=== PATIENT | female | born 1965 | race Caucasian/White ===

== ENCOUNTER 2019-10-28 15:36 | Outpatient (CLI) | payer OTHER, SELFPAY ==
[2019-10-28 15:53] LABS: Basophils Absolute Auto 0.05 K/mm3 (0.00-0.10); Basophils Percent Auto 0.9 % (0.0-1.0); Eosinophils Absolute Auto 0.13 K/mm3 (0.02-0.50); Eosinophils Percent Auto 2.2 % (1.0-6.0); Hematocrit 38.8 % (35.0-49.0); Immature Granulocyte Absolute 0.02 K/mm3 (0.00-0.00); Immature Granulocyte Percent A 0.3 % (0.0-0.0); Lymphocytes Absolute Auto 1.78 K/mm3 (1.10-4.50); Lymphocytes Percent Auto 30.3 % (18.0-42.0); Mean Corpuscular HGB Conc 33.5 g/dL (32.0-36.0); Mean Corpuscular Volume 95.6 fL (78.0-102.0); Mean Platelet Volume 9.8 fl (9.2-11.8); Monocytes Percent Auto 6.8 % (2.0-11.0); Neutrophils Absolute Auto 3.5 K/mm3 (1.7-7.2); Neutrophils Percent Auto 59.5 % (50.0-70.0); Platelet Count Result 261 K/mm3 (150-420); Red Blood Count 4.06 M/mm3 (4.20-5.40); Red Cell Distribution Width 13.1 % (11.6-14.4); White Blood Count 5.9 K/mm3 (4.8-10.8)
[2019-10-28 16:03] LABS: Hemoglobin A1C 7.8 % (<5.7)
[2019-10-28 16:39] LABS: Alanine Aminotransferase 73 U/L (14-59); Albumin Level 4.3 g/dL (3.4-5.0); Alkaline Phosphatase 106 U/L (46-116); Anion Gap 18.4 mmol/L (7-16); Aspartate Amino Transferase 44 U/L (15-37); Bilirubin,Total 0.2 mg/dL (0.00-1.00); Blood Urea Nitrogen 17 mg/dL (7-18); Calcium 9.4 mg/dL (8.5-10.1); Carbon Dioxide 24 mmol/L (21-32); Chloride 104 mmol/L (98-108); Cholesterol 186 mg/dL (0-200); Estimated Glomerular Filt Rate > 60; Glucose 170 mg/dL (70-99); HDL Direct 46 mg/dL (40-60); LDL Cholesterol Calculated 98 mg/dL (<130); Osmolality Calculated 299 mOsm/kg (285-295); Potassium 4.4 mmol/L (3.5-5.1); Sodium 142 mmol/L (136-145); Total Protein 8.1 g/dL (6.4-8.2); Triglycerides 212 mg/dL (0-150)
== END 2019-10-28 15:37 | disposition home or self-care (01) ==
LOC: CHSLAB 15:43
PROVIDERS: PCP Family Medicine
DX: R73.9 Hyperglycemia, unspecified (principal); Z13.220 Encounter for screening for lipoid disorders; I10 Essential (primary) hypertension
CPT/HCPCS: 36415; 80053; 80061; 83036; 85025

== ENCOUNTER 2020-01-26 08:12 | Outpatient (CLI) | payer OTHER, SELFPAY ==
[2020-01-26 09:11] LABS: Cholesterol 183 mg/dL (0-200); HDL Direct 42 mg/dL (40-60); LDL Cholesterol Calculated 90 mg/dL (<130); Triglycerides 257 mg/dL (0-150)
[2020-01-27 17:33] LABS: Basophils Absolute Auto 0.06 K/mm3 (0.00-0.10); Basophils Percent Auto 1.2 % (0.0-1.0); Eosinophils Absolute Auto 0.22 K/mm3 (0.02-0.50); Eosinophils Percent Auto 4.4 % (1.0-6.0); Hematocrit 43.6 % (35.0-49.0); Hemoglobin 13.3 g/dL (12.0-15.0); Immature Granulocyte Absolute 0.02 K/mm3 (0.00-0.00); Immature Granulocyte Percent A 0.4 % (0.0-0.0); Lymphocytes Absolute Auto 1.33 K/mm3 (1.10-4.50); Lymphocytes Percent Auto 26.4 % (18.0-42.0); Mean Corpuscular HGB Conc 30.5 g/dL (32.0-36.0); Mean Corpuscular Hemoglobin 30.6 pg (27.0-31.0); Mean Corpuscular Volume 100.5 fL (78.0-102.0); Mean Platelet Volume 10.9 fl (9.2-11.8); Monocytes Absolute Auto 0.41 K/mm3 (0.10-0.90); Monocytes Percent Auto 8.1 % (2.0-11.0); Neutrophils Percent Auto 59.5 % (50.0-70.0); Platelet Count Result 260 K/mm3 (150-420); Red Blood Count 4.34 M/mm3 (4.20-5.40); Red Cell Distribution Width 14.1 % (11.6-14.4)
[2020-01-27 17:50] LABS: Hemoglobin A1C 6.8 % (<5.7)
[2020-01-27 17:51] LABS: Alanine Aminotransferase 37 U/L (14-59); Albumin Level 4.3 g/dL (3.4-5.0); Alkaline Phosphatase 91 U/L (46-116); Anion Gap 12.5 mmol/L (7-16); Aspartate Amino Transferase 28 U/L (15-37); Bilirubin,Total 0.3 mg/dL (0.00-1.00); Blood Urea Nitrogen 18 mg/dL (7-18); Carbon Dioxide 28 mmol/L (21-32); Chloride 100 mmol/L (98-108); Estimated Glomerular Filt Rate > 60; Glucose 142 mg/dL (70-99); Osmolality Calculated 283 mOsm/kg (285-295); Potassium 5.5 mmol/L (3.5-5.1); Sodium 135 mmol/L (136-145); Total Protein 8.1 g/dL (6.4-8.2)
== END 2020-01-26 08:13 | disposition home or self-care (01) ==
PROVIDERS: PCP Family Medicine
DX: Z13.220 Encounter for screening for lipoid disorders (principal); I10 Essential (primary) hypertension; E11.9 Type 2 diabetes mellitus without complications
CPT/HCPCS: 36415; 80053; 80061; 83036; 85025

== ENCOUNTER 2020-01-31 15:35 | Outpatient (CLI) | payer OTHER, SELFPAY ==
[2020-01-31 15:59] LABS: Creatinine Urine 169.25 mg/dL (40-278)
[2020-01-31 16:01] LABS: MALB Creatinine Ratio 39.4 mg/g (0-30); Microalbumin Urine Random 66.8 mg/L
== END 2020-01-31 15:36 | disposition home or self-care (01) ==
PROVIDERS: PCP Family Medicine
DX: E11.9 Type 2 diabetes mellitus without complications (principal)
CPT/HCPCS: 82043

== ENCOUNTER 2021-05-31 18:16 | Inpatient (IN) | payer OTHER, SELFPAY ==
[2021-05-31] VITALS (8 sets, daily range): BP systolic 119–153; BP diastolic 80–92; PULSE 78–109; RESP 18–20; TEMP 37.3–37.9; O2SAT 87–94; BMI 41.6
--- NOTE | ~2021-05-31 | XR_ITS ---
EXAMINATION: XR chest 1V portable DATE: 06/04/2021 08:45 INDICATION: COVID-19 pneumonia. TECHNIQUE: A single frontal view of the chest was obtained. COMPARISON: Chest single view 05/31/2021, chest CT 05/31/2021 FINDINGS: There are airspace and interstitial opacities in all lung zones bilaterally with a peripher al predominance. No pleural effusion or pneumothorax. The heart size is normal. IMPRESSION: 1. Stable diffuse lung disease, consistent with COVID-19 pneumonia. Reviewed, dictated and finalized at location A. NG DOUBLE
--- NOTE | ~2021-05-31 | CT_ITS ---
EXAMINATION: CTA chest PE protocol DATE: 05/31/2021 20:19 INDICATION: Shortness of breath. TECHNIQUE: Computed tomography angiography (CTA) of the chest was performed with 100 mL Omnipaque-350 intravenous contrast timed to evaluate the pulmonary arteries. Coronal maximum intensity projection 3D-reconstructions were created by the technologist. Automated exposure control and iterative reconst ruction technique were employed. The dose-length product was 1073.29 mGy-cm. COMPARISON: Chest single view 05/31/2021 FINDINGS: There is mild emphysema. There are peripheral groundglass opacities and septal thickening p eripherally in all lobes. No pleural effusion. The heart size is normal. No pericardial effusion. The re is no pulmonary embolus. There is diffuse hepatic steatosis. There is mild thoracic spondylosis. IMPRESSION: 1. No pulmonary embolus. Sensitivity is moderately decreased by motion artifact. 2. Diffuse lung disease, consistent with COVID-19 pneumonia. 3. Mild emphysema. Reviewed, dictated and finalized at location A. TING CONTRACTOR IMPRESSION: 1. No pulmonary embolus. Sensitivity is moderately decreased by motion artifact . 2. Diffuse lung disease, consistent with COVID-19 pneumonia. 3. Mild emphysema.
--- NOTE | ~2021-05-31 | XR_ITS ---
XR chest 1V portable 05/31/2021 18:44 Indication: Shortness of breath and cough. Procedure: AP portable chest Comparison: No prior studies for comparison. Findings: Heart size normal. Patchy bilateral airspace disease, compatible with pneumonia. No pleural effusion or pneumothorax. No acute osseous abnormality. Impression: 1: Patchy bilateral airspace disease, compatible with pneumonia. Reviewed, dictated and finalized at location A. RPRISE APPLICATION ANALYST Impression: 1: Patchy bilateral airspace disease, compatible with pneumonia.
--- NOTE | 2021-05-31 18:28 | ED.SOB ---
HPI - SOB/Dyspnea General Chief Complaint: Shortness of Breath/Dyspnea Stated Complaint: amb Time Seen by Provider: 05/31/21 18:28 Source: patient Mode of arrival: ambulatory Limitations: no limitations History of Present Illness HPI Narrative: 55-year-old female, ex-smoker, DM, obesity, DOUG on CPAP, hypertension, dyslipidemia, arthritis, migraine, COVID unvaccinated, has been having these symptoms since 05/20/2021. -- cough productive of mucoid sputum -- Worsening shortness of breath -- pleuritic chest pain She tested positive for COVID on 05/27/2021 at [facility]. Subsequently she has been having worsening shortness of breath and was noted to be 88% on a pulse ox machine today afternoon. DD of DOUG shortness of breath she called the EMS and presented to our ER. MD elicited complaint: shortness of breath, cough and pain with inspiration Onset (ago): day(s) ( Twelve days) Context: recent illness, occurred during exertion and anxiety Timing: constant and progressively worsening Severity: moderate Exacerbating factors: exertion Relieving factors: nothing Associated symptoms: fever, cough, sputum production, nausea/vomiting, chest congestion and lightheadedness Treatment prior to arrival: none Related Data Home oxygen amount: none Home Medications Medication Instructions Recorded Confirmed amlodipine 10 mg PO DAILY 05/31/21 05/31/21 glipizide 5 mg PO DAILY 05/31/21 05/31/21 metoprolol succinate [Toprol XL] 50 mg PO DAILY 05/31/21 05/31/21 sertraline 100 mg PO DAILY 05/31/21 05/31/21 Allergies Allergy/AdvReac Type Severity Reaction Status Date / Time lisinopril Allergy Mild Cough Verified 05/31/21 18:43 Review of Systems Review of Systems: All systems reviewed & are unremarkable except as noted in HPI and below Constitutional: Constitutional: Reports as per HPI, Reports body ache(s) and Reports chills Eyes: Eyes: Reports as per HPI and Reports no additional eye complaints ENT: Reports system reviewed and no additional complaints, except as documented Cardiovascular: Cardiovascular: Reports as per HPI, Reports chest pain and Reports orthopnea Respiratory: Respiratory: Reports as per HPI, Reports pain on inspiration, Reports pain with cough, Reports dyspnea and Reports dyspnea on exertion Gastrointestinal: Gastrointestinal: Reports as per HPI, Reports no additional gastrointestinal complaints and Reports nausea Genitourinary: Genitourinary: Reports no additional female genitourinary complaints Musculoskeletal: Musculoskeletal: Reports myalgias Integumentary/Breasts: Skin/Breast: Reports system reviewed and no additional complaints, except as docu Neurologic: Reports system reviewed and no additional complaints, except as documented Psychiatric: Psychiatric: Reports no additional psychiatric complaints Endocrine: Endocrine: Reports no additional endocrine complaints Hematologic/Lymphatic: Hematologic/Lymphatic: Reports no additional hematologic/lymphatic complaints Allergic/Immunologic: Allergic/Immunologic: Reports no additional allergic/immunologic complaints [facility] Family History Family History Mother Family history of lung cancer Social History Social History Smoking status: Former smoker Exam Narrative: 55-year-old female is coughing persistently and is hypoxic with an oxygen saturation of 88%. Const: General: cooperative and anxious Nutritional Appearance: obese Orientation/consciousness: oriented to person, oriented to place, oriented to time and patient oriented x3 Limitations: physical limitations HENMT: Head: normal to inspection and No palpable skull fracture present Ears: hearing grossly normal bilaterally, external ears normal and mastoids normal General nose exam: Normal external nose present and Normal nares present Face and sinus: normal facial exam, s
--- NOTE | 2021-05-31 18:29 | ECG_ITS ---
Measurements Intervals [place] Rate: 102 P: 33 AK: 156 QRS: 31 QRSD: 89 T: 66 QT: 333 QTc: 434 Interpretive Statements SINUS TACHYCARDIA VENTRICULAR PREMATURE COMPLEX NONSPECIFIC T-WAVE ABNORMALITY- HIGH LATERAL LEADS BASELINE ARTIFACT- II, III, AVF BORDERLINE ECG Electronically Signed On 05-31-2021 20:13:54 VEGETABLE TRIMMER by Paulo Yeboah D.O.
[2021-05-31 19:03] LABS: Base Excess ABG 2.5 mmol/L (0-2); HCO3 ABG 25.7 mmol/L (23-29); Oxygen Content ABG 15.8 %vol (16.0-22.0); Oxygen Saturation ABG 88.8 % (95-97); Oxyhemoglobin 88.4 % (94-100); PCO2 ABG 35.2 mmHg (35-45); PO2 ABG 54.4 mmHg (80-90); Total Hemoglobin 12.7 g/dL (12.0-18.0); pH ABG 7.48 (7.35-7.45)
[2021-05-31 19:04] LABS: Basophils Absolute Auto 0.01 K/mm3 (0.00-0.10); Basophils Percent Auto 0.2 % (0.0-1.0); Eosinophils Absolute Auto 0.01 K/mm3 (0.02-0.50); Eosinophils Percent Auto 0.2 % (1.0-6.0); Hematocrit 36.7 % (35.0-49.0); Hemoglobin 12.1 g/dL (12.0-15.0); Immature Granulocyte Absolute 0.02 K/mm3 (0.00-0.00); Immature Granulocyte Percent A 0.5 % (0.0-0.0); Lymphocytes Percent Auto 11.8 % (18.0-42.0); Mean Corpuscular Hemoglobin 30.9 pg (27.0-31.0); Mean Corpuscular Volume 93.6 fL (78.0-102.0); Monocytes Absolute Auto 0.16 K/mm3 (0.10-0.90); Monocytes Percent Auto 3.8 % (2.0-11.0); Neutrophils Absolute Auto 3.5 K/mm3 (1.7-7.2); Neutrophils Percent Auto 83.5 % (50.0-70.0); Platelet Count Result 306 K/mm3 (150-420); Red Blood Count 3.92 M/mm3 (4.20-5.40); Red Cell Distribution Width 13.2 % (11.6-14.4); White Blood Count 4.2 K/mm3 (4.8-10.8)
[2021-05-31 19:04] LABS: Device ROOM AIR; Modified Allen's Test Pass; Site Drawn LEFT RADIAL
[2021-05-31 19:20] LABS: D Dimer 0.55 mg/L (0.19-0.50)
--- NOTE | 2021-05-31 19:21 | PC.NURSE ---
D-dimer resulted at 1920 with a result of 0.55. ERP notified
[2021-05-31 19:29] LABS: Alanine Aminotransferase 22 U/L (14-59); Albumin Level 2.9 g/dL (3.4-5.0); Alkaline Phosphatase 59 U/L (46-116); Anion Gap 11 mmol/L (8-16); Aspartate Amino Transferase 19 U/L (15-37); Bilirubin,Total 0.4 mg/dL (0.00-1.00); Blood Urea Nitrogen 11 mg/dL (7-18); Calcium 9.1 mg/dL (8.5-10.1); Carbon Dioxide 28 mmol/L (21-32); Chloride 98 mmol/L (98-108); Estimated CRCL calculation 70 ml/min; Estimated Glomerular Filt Rate 60; Glucose 173 mg/dL (70-99); Osmolality Calculated 287 mOsm/kg (285-295); Potassium 3.2 mmol/L (3.5-5.1); Sodium 137 mmol/L (136-145); Total Protein 8.2 g/dL (6.4-8.2)
[2021-05-31 19:29] LABS: NT Pro B Type Natriuretic Pept 120 pg/mL (0-125)
[2021-05-31] MEDS: SODIUM CHLORIDE 0.9% IV 1,000 ML 500 ML IV CONT (19:39)
[2021-05-31 20:16] LABS: Lactic Acid Reflex 1.3 mmol/L (0.4-2.0)
[2021-05-31 20:34] LABS: CRP > 25.0 mg/dL (0.0-0.9)
[2021-05-31 20:46] LABS: Partial Thromboplastin Time 28.9 SEC (23.90-30.70); Prothrombin Time 10.7 Seconds (9.50-12.10)
[2021-05-31 22:49] LABS: Glucose Point of Care 126 mg/dl (65-105)
[2021-05-31] MEDS: LACTATED RINGERS 1,000 ML 100 ML IV CONT (23:10)
[2021-05-31] MEDS: REMDESIVIR 200 MG/NS 250 ML 200 MG/250 ML BAG 250 MG IVPB (23:13)
--- NOTE | 2021-05-31 23:21 | ADMGEN ---
This patient, Katelyn Keene, was admitted to 2nd Floor Room 210-2. Patient/family oriented to hospital policies and general routines including ID bracelet, bed and alarms, visiting hours, pain management, procedures, bathroom and other care routines, personal items, smoking policy, room service/diet, and visiting hours. Information on how to activate the Rapid Response Team has been discussed. Patient/Family are encouraged to report perceived risks to care and to ask questions if they do not understand what they are told or what they should do. completed at 21:30
[2021-06-01] VITALS (10 sets, daily range): BP systolic 134–148; BP diastolic 81–92; PULSE 85–103; RESP 17–23; TEMP 36.4–36.9; O2SAT 90–96
[2021-06-01 05:26] LABS: Hematocrit 36.2 % (35.0-49.0); Hemoglobin 11.2 g/dL (12.0-15.0); Mean Corpuscular HGB Conc 30.9 g/dL (32.0-36.0); Mean Corpuscular Hemoglobin 29.6 pg (27.0-31.0); Mean Corpuscular Volume 95.8 fL (78.0-102.0); Mean Platelet Volume 9.2 fl (9.2-11.8); Platelet Count Result 321 K/mm3 (150-420); Red Blood Count 3.78 M/mm3 (4.20-5.40); Red Cell Distribution Width 13.1 % (11.6-14.4); White Blood Count 3.4 K/mm3 (4.8-10.8)
[2021-06-01 05:38] LABS: Prothrombin Time 10.7 Seconds (9.50-12.10)
[2021-06-01 05:40] LABS: Alanine Aminotransferase 20 U/L (14-59); Anion Gap 14 mmol/L (8-16); Blood Urea Nitrogen 10 mg/dL (7-18); Calcium 8.8 mg/dL (8.5-10.1); Carbon Dioxide 24 mmol/L (21-32); Chloride 101 mmol/L (98-108); Estimated CRCL calculation 73 ml/min; Estimated Glomerular Filt Rate > 60; Glucose 234 mg/dL (70-99); Magnesium 2.2 mg/dL (1.8-2.4); Osmolality Calculated 295 mOsm/kg (285-295); Potassium 3.6 mmol/L (3.5-5.1); Sodium 139 mmol/L (136-145)
[2021-06-01 05:48] LABS: Hemoglobin A1C 7.5 % (<5.7)
[2021-06-01 06:20] LABS: Band Neutrophils Percent 1 % (0-6); Lymphocytes Absolute Manual 0.44 K/mm3 (1.1-4.5); Lymphocytes Percent Manual 13 % (18-44); Neutrophils Absolute Manual 2.89 K/mm3 (1.7-7.2); Neutrophils Percent Manual 84 % (46-73); Total Cells Counted 100
[2021-06-01 06:21] LABS: Basophils Percent Manual 0 % (0-1); Eosinophils Percent Manual 0 % (1-6); Monocytes Absolute Manual 0.06 K/mm3 (0.1-0.90); Monocytes Percent Manual 2 % (3-9); Platelet Estimate Adequate (Adequate)
[2021-06-01] MEDS: METOPROLOL SUCCINATE EXT REL 50 MG TABCR PO (08:06)
[2021-06-01] MEDS: amLODIPine BESYLATE 5 MG TABLET 10 MG PO (08:06)
[2021-06-01] MEDS: ENOXAPARIN 40 MG/0.4 ML SYRINGE SUB-Q (08:07)
[2021-06-01] MEDS: SERTRALINE HCL 50 MG TABLET 100 MG PO (08:07)
[2021-06-01] MEDS: glipiZIDE 5 MG TABLET PO (08:07)
[2021-06-01] MEDS: LACTATED RINGERS 1,000 ML 100 ML IV CONT ×2 (11:31→22:04)
--- NOTE | 2021-06-01 11:56 | PM.IMHP ---
H&P: HPI History of Present Illness Date/Time: 06/01/21 11:56 this is a 54-year-old female who presented to urgent care with complaints of shortness of breath and uncontrollable coughing. Patient has a past medical Hx of hypertension, sleep apnea, diabetes and fibromyalgia. According to patient she presents to [facility] for shortness and a fever of 100.8. Patient was diagnosed with Covid and discharged home with steroids. She was instructed to return to the emergency department if her sats drop below 88%. Patient says she continues to have shortness of breath with uncontrollable cough and purchase pulse oximetry which read her oxygen level at 88%. At that time she proceeded to our emergency department and was admitted for worsening Covid pneumonia treated with dexamethasone, remdesivir, azithromycin and Rocephin. WBCs 3.4 hemoglobin 11.2 hematocrit 36.2, platelets 321, sodium 129, potassium 3.6, BUN 10, creatinine 0.93, glucose 234, 81 C7 0.5, lactic acid within normal limits, D-dimer 0.58, pH 7.45, O2 54.4, CO2 35.2, bicarb 25.7, CRP greater than 25, EKG sinus sinus tach with a heart rate of 102, chest x-ray indicates pneumonia, CTA indicates COVID pneumonia. Patient will be treated for Covid pneumonia. Patient continues to have uncontrolled coughing with shortness of breath patient notes that she experienced more shortness of breath with activity. Chief Complaint: Shortness of breath, uncontrollable cough Review of Systems Review of Systems: A 14 organ system Review of Systems was performed and pertinent positives included in the HPI, otherwise remaining ROS is negative. [facility] Past Medical History Medical History (Updated 06/01/21 @ 11:53 by BERNARD Jackson) Diabetes mellitus Fibromyalgia HTN (hypertension) Sleep apnea Surgical History Surgical History (Updated 06/01/21 @ 11:53 by BERNARD Jackson) H/O parathyroidectomy Family History Family History Mother Family history of lung cancer Social History Social History Smoking status: Former smoker Tobacco type: cigarettes Alcohol intake: unknown Substance use: unknown Spiritual care concerns: No Meds Home Medications and Allergies Home Medications Medication Instructions Recorded Confirmed Type amlodipine 10 mg PO DAILY 05/31/21 05/31/21 History glipizide 5 mg PO DAILY 05/31/21 05/31/21 History metoprolol succinate [Toprol XL] 50 mg PO DAILY 05/31/21 05/31/21 History sertraline 100 mg PO DAILY 05/31/21 05/31/21 History Allergies Allergy/AdvReac Type Severity Reaction Status Date / Time lisinopril Allergy Mild Cough Verified 05/31/21 18:43 Vital Signs Vital Signs - 24 hr 05/31/21 18:25 05/31/21 20:10 05/31/21 20:15 Temperature 100.2 F H 99.2 F Pulse Rate 100 78 98 Respiratory Rate 18 20 Blood Pressure 153/92 H 135/80 Pulse Oximetry 92 92 05/31/21 20:45 05/31/21 20:59 05/31/21 21:32 Temperature 99.7 F H Pulse Rate 101 H Respiratory Rate 20 Blood Pressure 128/89 Pulse Oximetry 87 L 94 94 05/31/21 22:00 06/01/21 00:00 06/01/21 03:40 Temperature 100.3 F H 97.6 F Pulse Rate 109 H 100 90 Respiratory Rate 18 18 Blood Pressure 119/81 140/83 Pulse Oximetry 91 92 06/01/21 04:00 06/01/21 08:00 06/01/21 08:06 Temperature 98.1 F 98 F Pulse Rate 89 101 H 99 Respiratory Rate 23 H 20 Blood Pressure 146/84 H 142/88 H Pulse Oximetry 93 96 Exam Narrative: GENERAL: This is a well-nourished, well-developed patient, in no apparent distress. HEAD: normocephalic, atraumatic. EYES: PERRL. Sclera clear/white. Vision is grossly intact. EARS: External ears normal, auditory canals clear and without drainage, TMs normal without perforation. Hearing grossly intact. NOSE: External nose normal with no obvious nasal discharge, nares without redness, no rhinorrhea. THROAT: Mucous membra
[2021-06-01 12:04] LABS: Glucose Point of Care 216 mg/dl (65-105)
[2021-06-01] MEDS: BENZONATATE 100 MG CAPSULE 200 MG PO ×2 (14:19→17:12)
[2021-06-01 17:12] LABS: Glucose Point of Care 224 mg/dl (65-105)
[2021-06-01] MEDS: LOPERAMIDE HCL 2 MG CAPSULE PO (17:12)
[2021-06-01] MEDS: BUDESONIDE/FORMOTEROL (*SP) 160-4.5 MCG 6 GM INH 2 PUFF INHALATION (18:35)
[2021-06-01 22:01] LABS: Glucose Point of Care 205 mg/dl (65-105)
[2021-06-01] MEDS: ENOXAPARIN 30 MG/0.3 ML SYRINGE SUB-Q (22:04)
[2021-06-01] MEDS: guaiFENesin 12 HR 600 MG TABCR 1200 MG PO (22:05)
[2021-06-01] MEDS: INSULIN GLARGINE (*BKC) 100 UNITS/ML 15 UNITS SUB-Q (22:05)
[2021-06-01] MEDS: REMDESIVIR 100 MG/NS 250 ML 100 MG/250 ML BAG 250 MG IVPB (22:38)
[2021-06-02] VITALS (9 sets, daily range): BP systolic 125–148; BP diastolic 73–91; PULSE 71–96; RESP 17–24; TEMP 36.3–36.9; O2SAT 91–92
--- NOTE | 2021-06-02 01:30 | PC.NURSE ---
Pt currently sleeping on her right side with the room lights off per pt request. Call light within reach.
--- NOTE | 2021-06-02 04:12 | PC.NURSE ---
Pt was brought 550 ml of freshwater. Call light is within reach. Pt is in pleasant mood and cooperative for vs and changing the battery to her telemetry box.
[2021-06-02] MEDS: BUDESONIDE/FORMOTEROL (*SP) 160-4.5 MCG 6 GM INH 2 PUFF INHALATION ×2 (06:20→18:30)
[2021-06-02 06:21] LABS: Hematocrit 34.5 % (35.0-49.0); Hemoglobin 11.1 g/dL (12.0-15.0); Mean Corpuscular HGB Conc 32.2 g/dL (32.0-36.0); Mean Corpuscular Hemoglobin 30.2 pg (27.0-31.0); Mean Corpuscular Volume 93.8 fL (78.0-102.0); Mean Platelet Volume 9.3 fl (9.2-11.8); Platelet Count Result 362 K/mm3 (150-420); Red Blood Count 3.68 M/mm3 (4.20-5.40); Red Cell Distribution Width 12.8 % (11.6-14.4); White Blood Count 3.8 K/mm3 (4.8-10.8)
[2021-06-02 06:41] LABS: INR 1.1; Prothrombin Time 11.4 Seconds (9.50-12.10)
[2021-06-02 06:49] LABS: Alanine Aminotransferase 21 U/L (14-59); Albumin Level 2.4 g/dL (3.4-5.0); Alkaline Phosphatase 53 U/L (46-116); Anion Gap 11 mmol/L (8-16); Aspartate Amino Transferase 12 U/L (15-37); Bilirubin,Total 0.2 mg/dL (0.00-1.00); Blood Urea Nitrogen 14 mg/dL (7-18); Calcium 8.8 mg/dL (8.5-10.1); Carbon Dioxide 27 mmol/L (21-32); Chloride 103 mmol/L (98-108); Estimated CRCL calculation 88 ml/min; Estimated Glomerular Filt Rate > 60; Glucose 233 mg/dL (70-99); Magnesium 2.2 mg/dL (1.8-2.4); Osmolality Calculated 299 mOsm/kg (285-295); Potassium 3.3 mmol/L (3.5-5.1); Sodium 141 mmol/L (136-145); Total Protein 7.1 g/dL (6.4-8.2)
[2021-06-02 06:51] LABS: CRP > 10.6 mg/dL (0.0-0.9)
[2021-06-02] MEDS: ENOXAPARIN 30 MG/0.3 ML SYRINGE SUB-Q ×2 (09:07→22:37)
[2021-06-02] MEDS: guaiFENesin 12 HR 600 MG TABCR 1200 MG PO ×2 (09:08→22:37)
[2021-06-02] MEDS: BENZONATATE 100 MG CAPSULE 200 MG PO ×3 (09:08→17:45)
[2021-06-02] MEDS: glipiZIDE 5 MG TABLET PO (09:09)
[2021-06-02] MEDS: METOPROLOL SUCCINATE EXT REL 50 MG TABCR PO (09:09)
[2021-06-02] MEDS: SERTRALINE HCL 50 MG TABLET 100 MG PO (09:09)
[2021-06-02] MEDS: amLODIPine BESYLATE 5 MG TABLET 10 MG PO (09:09)
[2021-06-02] MEDS: LACTATED RINGERS 1,000 ML 100 ML IV CONT (09:10)
--- NOTE | 2021-06-02 13:55 | P.PN_ITS ---
Progress Note: A&P Assessment and Plan (1) Pneumonia due to 2019 novel coronavirus: Code(s): U07.1 - COVID-19; J12.82 - Pneumonia due to coronavirus disease 2019 <RafiBERNARD Charlton - Last Filed: 06/02/21 14:01> Status: Acute <Rafiira JenniferBERNARD Jones - Last Filed: 06/02/21 14:01> Assessment and Plan: * Tested + May 27 [facility] * Continue remdesivir, dexamethasone, azithromycin and Rocephin and inhaler * Continue supplementary oxygen and inhaler <RafiBERNARD Charlton - Last Filed: 06/02/21 14:01> (2) Fibromyalgia: Code(s): M79.7 - Fibromyalgia <BERNARD Jackson - Last Filed: 06/02/21 14:01> Status: Acute <BERNARD Jackson - Last Filed: 06/02/21 14:01> Assessment and Plan: * Continue pain medication <BERNARD Jackson - Last Filed: 06/02/21 14:01> (3) Diabetes mellitus: Code(s): E11.9 - Type 2 diabetes mellitus without complications <BERNARD Jackson - Last Filed: 06/02/21 14:01> Status: Acute <BERNARD Jackson - Last Filed: 06/02/21 14:01> Assessment and Plan: * A1c 7.5 * blood sugars less than 300 continue Accu-Chek with sliding scale hypoglycemic protocol and home medication , change insulin to moderate dose due to insulin use * Will adjust medication as needed * Continue diabetic diet <BERNARD Jackson - Last Filed: 06/02/21 14:01> (4) Sleep apnea: Code(s): G47.30 - Sleep apnea, unspecified <BERNARD Jackson - Last Filed: 06/02/21 14:01> Status: Acute <BERNARD Jackson - Last Filed: 06/02/21 14:01> Assessment and Plan: * Resume CPAP when appropriate <BERNARD Jackson - Last Filed: 06/02/21 14:01> (5) HTN (hypertension): Code(s): I10 - Essential (primary) hypertension <Anastacio CamarenaBERNARD Alexsander Last Filed: 06/02/21 14:01> Status: Acute <Anastacio Camarena INVOICE MACHINE OPERATORAlexsanderShannen Alexsander Last Filed: 06/02/21 14:01> Assessment and Plan: * Blood pressure 145/91 * Continue amlodipine 10 mg daily and metoprolol 50 mg daily * vital signs as ordered * Will adjust medication as needed <Anastacio RodriguezOSCAR JonesAlexsanderShannen - Last Filed: 06/02/21 14:01> (6) Acute respiratory failure with hypoxia: Code(s): J96.01 - Acute respiratory failure with hypoxia <Anastacio Rangel OSCAR CamarenaAlexsanderShannen - Last Filed: 06/02/21 14:01> Status: Acute <Anastacio Camarena BERNARD Beltre Last Filed: 06/02/21 14:01> Assessment and Plan: * pH 7.48 CO2 35.20-54.4 bicarb 25.7 * Continue supplementary oxygen * Secondary to Covid pneumonia <Anastacio Rangel BECK CamarenaCarlos - Last Filed: 06/02/21 14:01> Subjective Date/time seen: 06/02/21 13:55 patient notes that her condition has greatly improved since her admission. She still does not feel like she is ready for discharge today she continues to have shortness of breath with improvement in a cough. The patient denies , CP, palpitation, extremity numbness, lightheadedness, dizziness, constipation, diarrhea, chills, or fever. <Anastacio RodriguezBERNARD Jones - Last Filed: 06/02/21 14:01> Review of Systems Review of Systems: A 14 organ system Review of Systems was performed and pertinent positives included in the HPI, otherwise remaining ROS is negative. <Rafiira JenniferBERNARD Jones - Last Filed: 06/02/21 14:01> Exam Narrative: GENERAL: This is a well-nourished, well-developed patient, in no apparent distress. HEAD: normocephalic, atraumatic. EYES: PERRL. Sclera clear/white. Vision is grossly intact. EARS:
--- NOTE | 2021-06-02 13:55 | WPDPN ---
Progress Note: A&P Assessment and Plan (1) Pneumonia due to 2019 novel coronavirus: Code(s): U07.1 - COVID-19; J12.82 - Pneumonia due to coronavirus disease 2019 <BERNARD Jackson - Last Filed: 06/02/21 14:01> Status: Acute <BERNARD Jackson - Last Filed: 06/02/21 14:01> Assessment and Plan: Tested + May 27 [facility] Continue remdesivir, dexamethasone, azithromycin and Rocephin and inhaler Continue supplementary oxygen and inhaler <BERNARD Jackson - Last Filed: 06/02/21 14:01> (2) Fibromyalgia: Code(s): M79.7 - Fibromyalgia <BERNARD Jackson - Last Filed: 06/02/21 14:01> Status: Acute <BERNARD Jackson - Last Filed: 06/02/21 14:01> Assessment and Plan: Continue pain medication <BERNARD Jackson - Last Filed: 06/02/21 14:01> (3) Diabetes mellitus: Code(s): E11.9 - Type 2 diabetes mellitus without complications <BERNARD Jackson - Last Filed: 06/02/21 14:01> Status: Acute <BERNARD Jackson - Last Filed: 06/02/21 14:01> Assessment and Plan: A1c 7.5 blood sugars less than 300 continue Accu-Chek with sliding scale hypoglycemic protocol and home medication , change insulin to moderate dose due to insulin use Will adjust medication as needed Continue diabetic diet <BERNARD Jackson - Last Filed: 06/02/21 14:01> (4) Sleep apnea: Code(s): G47.30 - Sleep apnea, unspecified <BERNARD Jackson - Last Filed: 06/02/21 14:01> Status: Acute <BERNARD Jackson - Last Filed: 06/02/21 14:01> Assessment and Plan: Resume CPAP when appropriate <BERNARD Jackson - Last Filed: 06/02/21 14:01> (5) HTN (hypertension): Code(s): I10 - Essential (primary) hypertension <Anastacio CamarenaOSCARAlexsanderShannen - Last Filed: 06/02/21 14:01> Status: Acute <Anastacio Camarena BERNARD Beltre Last Filed: 06/02/21 14:01> Assessment and Plan: Blood pressure 145/91 Continue amlodipine 10 mg daily and metoprolol 50 mg daily vital signs as ordered Will adjust medication as needed <Anastacio RodriguezVandana Camarena BERNARD - Last Filed: 06/02/21 14:01> (6) Acute respiratory failure with hypoxia: Code(s): J96.01 - Acute respiratory failure with hypoxia <Anastacio Rangel Migue BERNARD - Last Filed: 06/02/21 14:01> Status: Acute <Anastacio Camarena BERNARD - Last Filed: 06/02/21 14:01> Assessment and Plan: pH 7.48 CO2 35.20-54.4 bicarb 25.7 Continue supplementary oxygen Secondary to Covid pneumonia <Anastacio Rangel Migue BERNARD - Last Filed: 06/02/21 14:01> Subjective Date/time seen: 06/02/21 13:55 patient notes that her condition has greatly improved since her admission. She still does not feel like she is ready for discharge today she continues to have shortness of breath with improvement in a cough. The patient denies , CP, palpitation, extremity numbness, lightheadedness, dizziness, constipation, diarrhea, chills, or fever. <BERNARD Jackson - Last Filed: 06/02/21 14:01> Review of Systems Review of Systems: A 14 organ system Review of Systems was performed and pertinent positives included in the HPI, otherwise remaining ROS is negative. <Anastacio JenniferBERNARD Jones Last Filed: 06/02/21 14:01> Exam Narrative: GENERAL: This is a well-nourished, well-developed patient, in no apparent distress. HEAD: normocephalic, atraumatic. EYES: PERRL. Sclera clear/white. Vision is grossly intact. EARS: External ears normal, auditory canals clear and without drainage, TMs normal without perforation. Hearing grossly intact. NOSE: External nose normal with no obvious nasal discharge, nares without redness, no rhinorrhea. THROAT: Mucous membranes moist, posterior pharynx clear. NECK: Neck supple, non-tender without lymphadenopathy, masses or thyromegaly. CARDIOVASCULAR: Regular rate and
[2021-06-02 15:10] LABS: Glucose Point of Care 315 mg/dl (65-105)
[2021-06-02 17:35] LABS: Glucose Point of Care 323 mg/dl (65-105)
[2021-06-02] MEDS: POTASSIUM CHLORIDE 20 MEQ TABLET 40 MEQ PO (17:45)
[2021-06-02] MEDS: INSULIN GLARGINE (*BKC) 100 UNITS/ML 15 UNITS SUB-Q (22:37)
[2021-06-02] MEDS: LOPERAMIDE HCL 2 MG CAPSULE PO (22:50)
[2021-06-02] MEDS: REMDESIVIR 100 MG/NS 250 ML 100 MG/250 ML BAG 250 MG IVPB (23:50)
[2021-06-02 23:51] LABS: Glucose Point of Care 196 mg/dl (65-105)
[2021-06-03] VITALS (8 sets, daily range): BP systolic 127–157; BP diastolic 71–95; PULSE 71–92; RESP 20–23; TEMP 36.1–36.8; O2SAT 90–92
[2021-06-03] MEDS: BUDESONIDE/FORMOTEROL (*SP) 160-4.5 MCG 6 GM INH 2 PUFF INHALATION ×2 (05:55→17:47)
[2021-06-03 06:31] LABS: Prothrombin Time 10.9 Seconds (9.50-12.10)
[2021-06-03 06:39] LABS: Alanine Aminotransferase 21 U/L (14-59); Estimated CRCL calculation 80 ml/min; Estimated Glomerular Filt Rate > 60
[2021-06-03 08:05] LABS: Glucose Point of Care 196 mg/dl (65-105)
[2021-06-03] MEDS: ENOXAPARIN 30 MG/0.3 ML SYRINGE SUB-Q ×2 (08:37→20:40)
[2021-06-03] MEDS: guaiFENesin 12 HR 600 MG TABCR 1200 MG PO ×2 (08:39→20:41)
[2021-06-03] MEDS: BENZONATATE 100 MG CAPSULE 200 MG PO ×3 (08:40→17:18)
[2021-06-03] MEDS: SERTRALINE HCL 50 MG TABLET 100 MG PO (08:40)
[2021-06-03] MEDS: METOPROLOL SUCCINATE EXT REL 50 MG TABCR PO (08:40)
[2021-06-03] MEDS: amLODIPine BESYLATE 5 MG TABLET 10 MG PO (08:41)
[2021-06-03] MEDS: glipiZIDE 5 MG TABLET PO (08:41)
[2021-06-03] MEDS: LOPERAMIDE HCL 2 MG CAPSULE PO ×2 (08:53→08:58)
[2021-06-03 09:03] LABS: Hemoglobin 11.5 g/dL (12.0-15.0); Mean Corpuscular HGB Conc 31.9 g/dL (32.0-36.0); Mean Corpuscular Hemoglobin 30.3 pg (27.0-31.0); Mean Platelet Volume 9.3 fl (9.2-11.8); Platelet Count Result 436 K/mm3 (150-420); Red Blood Count 3.79 M/mm3 (4.20-5.40); Red Cell Distribution Width 12.9 % (11.6-14.4); White Blood Count 4.7 K/mm3 (4.8-10.8)
[2021-06-03 09:07] LABS: Alanine Aminotransferase 21 U/L (14-59); Albumin Level 2.7 g/dL (3.4-5.0); Alkaline Phosphatase 58 U/L (46-116); Anion Gap 11 mmol/L (8-16); Aspartate Amino Transferase 13 U/L (15-37); Bilirubin,Total 0.2 mg/dL (0.00-1.00); Blood Urea Nitrogen 19 mg/dL (7-18); Calcium 9.2 mg/dL (8.5-10.1); Carbon Dioxide 27 mmol/L (21-32); Chloride 104 mmol/L (98-108); Estimated CRCL calculation 74 ml/min; Estimated Glomerular Filt Rate > 60; Glucose 207 mg/dL (70-99); Osmolality Calculated 302 mOsm/kg (285-295); Potassium 3.5 mmol/L (3.5-5.1); Sodium 142 mmol/L (136-145); Total Protein 7.3 g/dL (6.4-8.2)
[2021-06-03 11:31] LABS: Glucose Point of Care 270 mg/dl (65-105)
--- NOTE | 2021-06-03 13:38 | WPDPN ---
Progress Note: A&P Assessment and Plan (1) Pneumonia due to 2019 novel coronavirus: Code(s): U07.1 - COVID-19; J12.82 - Pneumonia due to coronavirus disease 2019 Status: Acute Assessment and Plan: Tested + May 27 [facility] Continue remdesivir, dexamethasone, azithromycin and Rocephin and inhaler Continue supplementary oxygen and inhaler Home to eval before discharge Chest x-ray in the a.m. (2) Fibromyalgia: Code(s): M79.7 - Fibromyalgia Status: Acute Assessment and Plan: Continue pain medication (3) Diabetes mellitus: Code(s): E11.9 - Type 2 diabetes mellitus without complications Status: Acute Assessment and Plan: A1c 7.5 blood sugars less than 300 continue Accu-Chek with sliding scale hypoglycemic protocol and home medication , change insulin to moderate dose due to insulin use Will adjust medication as needed Continue diabetic diet (4) Sleep apnea: Code(s): G47.30 - Sleep apnea, unspecified Status: Acute Assessment and Plan: Resume CPAP when appropriate (5) HTN (hypertension): Code(s): I10 - Essential (primary) hypertension Status: Acute Assessment and Plan: Blood pressure stable Continue amlodipine 10 mg daily and metoprolol 50 mg daily vital signs as ordered Will adjust medication as needed (6) Acute respiratory failure with hypoxia: Code(s): J96.01 - Acute respiratory failure with hypoxia Status: Acute Assessment and Plan: pH 7.48 CO2 35.20-54.4 bicarb 25.7 Continue supplementary oxygen Secondary to Covid pneumonia Subjective Date/time seen: 06/03/21 13:38 patient condition has much improved she notes that her coughing has improved she still continues to have shortness of breath. I explained to patient that she will more than likely need a home oxygen eval and possibly discharge home with oxygen. The patient denies CP, palpitation, extremity numbness, lightheadedness, dizziness, constipation, diarrhea, chills, or fever. Patient will more than likely discharge tomorrow Review of Systems Review of Systems: A 14 organ system Review of Systems was performed and pertinent positives included in the HPI, otherwise remaining ROS is negative. Exam Narrative: GENERAL: This is a well-nourished, well-developed patient, in no apparent distress. HEAD: normocephalic, atraumatic. EYES: PERRL. Sclera clear/white. Vision is grossly intact. EARS: External ears normal, auditory canals clear and without drainage, TMs normal without perforation. Hearing grossly intact. NOSE: External nose normal with no obvious nasal discharge, nares without redness, no rhinorrhea. THROAT: Mucous membranes moist, posterior pharynx clear. NECK: Neck supple, non-tender without lymphadenopathy, masses or thyromegaly. CARDIOVASCULAR: Regular rate and rhythm without murmurs, gallops, or rubs. RESPIRATORY: Diminished throughout GASTROINTESTINAL: Abdomen soft, non-tender, nondistended. Bowel sounds are active. No hepato-splenomegaly, or palpable masses. No guarding. SKIN: warm, intact with no suspicious lesions or rash, good texture and turgor. NEURO: awake, alert, and oriented to person, place and time. There were no obvious focal neurologic abnormalities. Steady gait EXTREMITIES: Normal range of motion. No edema. No calf tenderness. Negative Homans sign bilaterally. BACK: Nontender without deformity or crepitance. No flank tenderness. Objective Data Vital Signs Vital Signs: Vital Signs - 24 hr 06/02/21 16:00 06/02/21 20:00 06/02/21 23:10 Temperature 98.2 F 98.2 F Pulse Rate 74 71 71 Respiratory Rate 18 18 Blood Pressure 145/83 H 138/82 Pulse Oximetry 91 91 06/03/21 00:00 06/03/21 03:29 06/03/21 04:00 Temperature 98.2 F 98.1 F Pulse Rate 79 71 75 Respiratory Rate 23 H 23 H Blood Pressure 140/80 157/92 H Pulse Oximetry 92 90 06/03/21 08:00 06/03/21 08:40 06/03/21 12:25 [facility]
[2021-06-03 16:47] LABS: Glucose Point of Care 338 mg/dl (65-105)
[2021-06-03 20:37] LABS: Glucose Point of Care 313 mg/dl (65-105)
[2021-06-03] MEDS: REMDESIVIR 100 MG/NS 250 ML 100 MG/250 ML BAG 250 MG IVPB (20:41)
[2021-06-03] MEDS: INSULIN GLARGINE (*BKC) 100 UNITS/ML 15 UNITS SUB-Q (20:42)
[2021-06-04] VITALS (9 sets, daily range): BP systolic 136–153; BP diastolic 78–90; PULSE 66–100; RESP 16–20; TEMP 36.3–36.6; O2SAT 85–92
[2021-06-04 05:40] LABS: Hematocrit 36.9 % (35.0-49.0); Hemoglobin 12.1 g/dL (12.0-15.0); Mean Corpuscular HGB Conc 32.8 g/dL (32.0-36.0); Mean Corpuscular Hemoglobin 30.4 pg (27.0-31.0); Mean Corpuscular Volume 92.7 fL (78.0-102.0); Platelet Count Result 455 K/mm3 (150-420); Red Blood Count 3.98 M/mm3 (4.20-5.40); Red Cell Distribution Width 12.3 % (11.6-14.4); White Blood Count 5.7 K/mm3 (4.8-10.8)
[2021-06-04] MEDS: BUDESONIDE/FORMOTEROL (*SP) 160-4.5 MCG 6 GM INH 2 PUFF INHALATION (05:46)
[2021-06-04 05:53] LABS: Prothrombin Time 10.7 Seconds (9.50-12.10)
[2021-06-04 05:58] LABS: Alanine Aminotransferase 21 U/L (14-59); Albumin Level 2.6 g/dL (3.4-5.0); Alkaline Phosphatase 58 U/L (46-116); Anion Gap 10 mmol/L (8-16); Aspartate Amino Transferase < 10 U/L (15-37); Bilirubin,Total 0.2 mg/dL (0.00-1.00); Blood Urea Nitrogen 19 mg/dL (7-18); Calcium 8.7 mg/dL (8.5-10.1); Carbon Dioxide 27 mmol/L (21-32); Chloride 103 mmol/L (98-108); Estimated CRCL calculation 76 ml/min; Estimated Glomerular Filt Rate > 60; Glucose 182 mg/dL (70-99); Osmolality Calculated 297 mOsm/kg (285-295); Potassium 3.5 mmol/L (3.5-5.1); Sodium 140 mmol/L (136-145); Total Protein 7.3 g/dL (6.4-8.2)
[2021-06-04 08:15] LABS: Glucose Point of Care 139 mg/dl (65-105)
[2021-06-04] MEDS: amLODIPine BESYLATE 5 MG TABLET 10 MG PO (08:46)
[2021-06-04] MEDS: BENZONATATE 100 MG CAPSULE 200 MG PO ×2 (08:48→12:34)
[2021-06-04] MEDS: guaiFENesin 12 HR 600 MG TABCR 1200 MG PO (08:49)
[2021-06-04] MEDS: ENOXAPARIN 30 MG/0.3 ML SYRINGE SUB-Q (08:49)
[2021-06-04] MEDS: glipiZIDE 5 MG TABLET PO (08:50)
[2021-06-04] MEDS: SERTRALINE HCL 50 MG TABLET 100 MG PO (08:50)
[2021-06-04] MEDS: METOPROLOL SUCCINATE EXT REL 50 MG TABCR PO (08:50)
--- NOTE | 2021-06-04 10:07 | HOMEO2EVAL ---
Evaluation was performed at [facility] Home Oxygen Evaluation RC: Home Oxygen (O2) Evaluation Start: 06/04/21 08:36 Freq: ONCE Status: Active Protocol: RPE Activity Type Activity Date Activity User E-Sign Co-Sign Detail Recorded Client Recorded Date Recorded By Document 06/04/21 08:50 SJB [id number] 06/04/21 10:07 SJB Document 06/04/21 08:51 SJB [id number] 06/04/21 10:07 SJB Document 06/04/21 08:53 SJB [id number] 06/04/21 10:07 SJB Document 06/04/21 08:56 SJB [id number] 06/04/21 10:07 SJB Document 06/04/21 08:59 SJB [id number] 06/04/21 10:07 SJB Document 06/04/21 09:03 SJB [id number] 06/04/21 10:07 SJB 06/04/21 06/04/21 06/04/21 08:50 08:51 08:53 Home O2 Evaluation Test Phase Resting Resting Exercise Oxygen Delivery Room Air Nasal Cannula Nasal Cannula Oxygen Flow Rate (L/min) 1 1 Pulse Oximetry (90-100 %) 86 L 92 85 L Pulse Rate (60-100 beats/min) 97 86 100 Activity Tolerance Good Rate of Perceived Exertion (PE) 11 Fairly light Ambulation Distance (feet) 30 Home Oxygen Evaluation Comments Will start on 1 Will begin walk Will start on 2 lpm o2 . lpm Treatment Charges O2 Evaluation - Inpatient 06/04/21 06/04/21 06/04/21 08:56 08:59 09:03 Home O2 Evaluation Test Phase Exercise Exercise Exercise Oxygen Delivery Nasal Cannula Nasal Cannula Nasal Cannula Oxygen Flow Rate (L/min) 2 3 4 Pulse Oximetry (90-100 %) 86 L 88 L 92 Pulse Rate (60-100 beats/min) 96 97 93 Activity Tolerance Good Good Good Rate of Perceived Exertion (PE) 11 Fairly light 12 12 Ambulation Distance (feet) 15 115 150 Home Oxygen Evaluation Comments Will increase Will increase Pt finished to 3 lpm to 4 lpm walk on 4 lpm with Sp02 at or above 92%. PLB encouraged. Treatment Charges
[2021-06-04 12:16] LABS: Glucose Point of Care 258 mg/dl (65-105)
--- NOTE | 2021-06-04 13:47 | P.DS_ITS ---
DS: Admitting Diagnosis Discharge Date 06/04/2021 <Rich LopezZHAO Fong - Last Filed: 06/04/21 14:03> Admitting Diagnosis COVID, Diabetes, Acute Respiratory Failure with Hypoxia <Rich LopezZHAO Fong - Last Filed: 06/04/21 14:03> DS: Discharge Diagnosis Discharge Diagnosis (1) Pneumonia due to 2019 novel coronavirus: Code(s): U07.1 - COVID-19; J12.82 - Pneumonia due to coronavirus disease 2019 <Rich JohnZHAO Fong - Last Filed: 06/04/21 14:03> Status: Acute <Rich LopezZHAO Fong - Last Filed: 06/04/21 14:03> Assessment and Plan: * Tested + May 27 [facility] * Continue remdesivir, dexamethasone, azithromycin and Rocephin and inhaler * Continue supplementary oxygen and inhaler * Home to [facility] before discharge * Chest x-ray in the a.m. 06/04/2021 Will continue Decadron on DC, Pt had a home Oxygen Assessment test performed resulting in the followin L/min NC while at rest and 4 L/min with ambulation. Pt to follow up with PCP after quarantine is complete. <Rich JohnZHAO Fong - Last Filed: 06/04/21 14:03> (2) Fibromyalgia: Code(s): M79.7 - Fibromyalgia <Rich JohnZHAO Fong - Last Filed: 06/04/21 14:03> Status: Acute <Rich JohnZHAO Fong - Last Filed: 06/04/21 14:03> Assessment and Plan: * Continue pain medication <ZHAO Hanson - Last Filed: 06/04/21 14:03> (3) Diabetes mellitus: Code(s): E11.9 - Type 2 diabetes mellitus without complications <ZHAO Hanson - Last Filed: 06/04/21 14:03> Status: Acute <ZHAO Hanson - Last Filed: 06/04/21 14:03> Assessment and Plan: * A1c 7.5 * blood sugars less than 300 continue Accu-Chek with sliding scale hypoglycemic protocol and home medication , change insulin to moderate dose due to insulin use * Will adjust medication as needed * Continue diabetic diet 06/04/2021 Glucose has been elevated which is expected d/t Decadron dosing. F/U with PCP after DC. <ZHAO Hanson - Last Filed: 06/04/21 14:03> (4) Sleep apnea: Code(s): G47.30 - Sleep apnea, unspecified <ZHAO Hanson - Last Filed: 06/04/21 14:03> Status: Acute <ZHAO Hanson - Last Filed: 06/04/21 14:03> Assessment and Plan: * Resume CPAP when appropriate <ZHAO Hanson - Last Filed: 06/04/21 14:03> (5) HTN (hypertension): Code(s): I10 - Essential (primary) hypertension <ZHAO Hanson - Last Filed: 06/04/21 14:03> Status: Acute <ZHAO Hanson - Last Filed: 06/04/21 14:03> Assessment and Plan: * Blood pressure stable * Continue amlodipine 10 mg daily and metoprolol 50 mg daily * vital signs as ordered * Will adjust medication as needed 06/04/2021 VSS continue home medications on DC. <ZHAO Hanson - Last Filed: 06/04/21 14:03> (6) Acute respiratory failure with hypoxia: Code(s): J96.01 - Acute respiratory failure with hypoxia <ZHAO Hanson - Last Filed: 06/04/21 14:03> Status: Acute <ZHAO Hanson - Last Filed: 06/04/21 14:03> Assessment and Plan: * pH 7.48 CO2 35.20-54.4 bicarb 25.7 * Continue supplementary oxygen * Secondary to Covid pneumonia 06/04/2021 Lung sounds are a little diminished, minimal coughing, qualified for home O2 (see above under Pneumonia due to COVID) <ZHAO Hanson - Last Filed: 06/04/21 14:03> DS: Summary Hospital Course Hospital Course: Pt has done well. Breathing improved, able to go home
--- NOTE | 2021-06-04 13:47 | PM.DS ---
DS: Admitting Diagnosis Discharge Date 06/04/2021 <Rich LopezZHAO Fong - Last Filed: 06/04/21 14:03> Admitting Diagnosis COVID, Diabetes, Acute Respiratory Failure with Hypoxia <Rich LopezZHAO Fong - Last Filed: 06/04/21 14:03> DS: Discharge Diagnosis Discharge Diagnosis (1) Pneumonia due to 2019 novel coronavirus: Code(s): U07.1 - COVID-19; J12.82 - Pneumonia due to coronavirus disease 2019 <Rich LopezZHAO Fong - Last Filed: 06/04/21 14:03> Status: Acute <Rich LopezZHAO Fong - Last Filed: 06/04/21 14:03> Assessment and Plan: Tested + May 27 [facility] Continue remdesivir, dexamethasone, azithromycin and Rocephin and inhaler Continue supplementary oxygen and inhaler Home to [facility] before discharge Chest x-ray in the a.m. 06/04/2021 Will continue Decadron on DC, Pt had a home Oxygen Assessment test performed resulting in the followin L/min NC while at rest and 4 L/min with ambulation. Pt to follow up with PCP after quarantine is complete. <ZHAO Hanson - Last Filed: 06/04/21 14:03> (2) Fibromyalgia: Code(s): M79.7 - Fibromyalgia <ZHAO Hanson - Last Filed: 06/04/21 14:03> Status: Acute <Rich JohnZHAO Fong - Last Filed: 06/04/21 14:03> Assessment and Plan: Continue pain medication <ZHAO Hanson - Last Filed: 06/04/21 14:03> (3) Diabetes mellitus: Code(s): E11.9 - Type 2 diabetes mellitus without complications <ZHAO Hanson - Last Filed: 06/04/21 14:03> Status: Acute <ZHAO Hanson - Last Filed: 06/04/21 14:03> Assessment and Plan: A1c 7.5 blood sugars less than 300 continue Accu-Chek with sliding scale hypoglycemic protocol and home medication , change insulin to moderate dose due to insulin use Will adjust medication as needed Continue diabetic diet 06/04/2021 Glucose has been elevated which is expected d/t Decadron dosing. F/U with PCP after DC. <ZHAO Hanson - Last Filed: 06/04/21 14:03> (4) Sleep apnea: Code(s): G47.30 - Sleep apnea, unspecified <ZHAO Hanson - Last Filed: 06/04/21 14:03> Status: Acute <ZHAO Hanson - Last Filed: 06/04/21 14:03> Assessment and Plan: Resume CPAP when appropriate <ZHAO Hanson - Last Filed: 06/04/21 14:03> (5) HTN (hypertension): Code(s): I10 - Essential (primary) hypertension <ZHAO Hanson - Last Filed: 06/04/21 14:03> Status: Acute <ZHAO Hanson - Last Filed: 06/04/21 14:03> Assessment and Plan: Blood pressure stable Continue amlodipine 10 mg daily and metoprolol 50 mg daily vital signs as ordered Will adjust medication as needed 06/04/2021 VSS continue home medications on DC. <ZHAO Hanson - Last Filed: 06/04/21 14:03> (6) Acute respiratory failure with hypoxia: Code(s): J96.01 - Acute respiratory failure with hypoxia <ZHAO Hanson - Last Filed: 06/04/21 14:03> Status: Acute <ZHAO Hanson - Last Filed: 06/04/21 14:03> Assessment and Plan: pH 7.48 CO2 35.20-54.4 bicarb 25.7 Continue supplementary oxygen Secondary to Covid pneumonia 06/04/2021 Lung sounds are a little diminished, minimal coughing, qualified for home O2 (see above under Pneumonia due to COVID) <ZHAO Hanson - Last Filed: 06/04/21 14:03> DS: Summary Hospital Course Hospital Course: Pt has done well. Breathing improved, able to go home with home oxygen. close follow up with PCP after quarantine complete. <Rich Ty, MARKETING STRATEGIST-C - Last Filed: 06/04/21 14:03> 55-year-old female with hypertension, diabetes mellitus, depression was admitted for acute hypoxic respiratory failure secondary to COVID pneumonia. She insisted on being discharged. She was discharged on home oxygen, Decadron and
--- NOTE | 2021-06-04 16:25 | PC.NURSE ---
Patient discharged home transported by son via personal vehicle. IV site discontinued and removed prior to discharge. Discharge Instructions given and patient acknowledged understanding of instructions given. Staff escorted patient to main entrance and assisted into personal vehicle for transport.
--- NOTE | 2021-06-05 11:16 | PC.NURSE ---
Pt states she received and understood her discharge instructions. Pt also states you guys were great .
== END 2021-06-04 16:25 | disposition home or self-care (01) | DRG 177 ==
LOC: CHSED 20:59 → CHS2ND 21:28
PROVIDERS: Nurse Practitioner; Admitting Provider Internal Medicine Critical Care Medicine; Emergency Provider Internal Medicine Critical Care Medicine; PCP Family Medicine; Visit Provider Internal Medicine Critical Care Medicine
DX: U07.1 COVID-19 (principal); J12.82 Pneumonia due to coronavirus disease 2019; J96.01 Acute respiratory failure with hypoxia; I10 Essential (primary) hypertension; E11.65 Type 2 diabetes mellitus with hyperglycemia; E78.5 Hyperlipidemia, unspecified; E87.6 Hypokalemia; M19.90 Unspecified osteoarthritis, unspecified site; G47.33 Obstructive sleep apnea (adult) (pediatric); E11.9 Type 2 diabetes mellitus without complications; M79.7 Fibromyalgia; G47.30 Sleep apnea, unspecified; Z87.891 Personal history of nicotine dependence
CPT/HCPCS: 36415; 36600; 71045; 71275; 80048; 80053; 82565; 82805; 82948; 83036; 83605; 83735; 83880; 84460; 84484; 85025; 85027; 85380; 85610; 85730; 86140; 87040; 93005; 94618; 96361; 96365; 96372; 99285; A9270; J0456; J0696; J1100; J1650; J1815; J7030; J7060; J7120; Q9967

== ENCOUNTER 2023-11-29 06:04 | Emergency (ER) | payer OTHER, SELFPAY ==
--- NOTE | ~2023-11-29 | CT_ITS ---
EXAMINATION: CT abdomen pelvis wo con DATE: 11/29/2023 07:18 INDICATION: Right-sided flank pain and nausea for 2 days TECHNIQUE: Computed tomography (CT) of the abdomen and pelvis was performed without intravenous contr ast. The dose-length product was 1352.96 mGy-cm. Automated exposure control and iterative reconstruct ion technique were employed. COMPARISON: CT dated 05/03/2013 FINDINGS: Lung bases unremarkable. Heart size normal. No significant pleural or pericardial effusion. There is a thickened appendix containing multiple fecaliths. There is mild periappendiceal infiltrat ion. Findings compatible with acute appendicitis without evidence for perforation. Fatty infiltration of the liver. The spleen, pancreas, adrenal glands and kidneys are unremarkable. G allbladder is present. No free air. There is lower thoracic and lumbar spondylosis. IMPRESSION: 1. Acute uncomplicated appendicitis. Reviewed, dictated and finalized at location B.
[2023-11-29 06:04] VITALS: BP 167/106; PULSE 109; RESP 18; TEMP 36.2; O2SAT 98
--- NOTE | 2023-11-29 06:11 | ED.ABDPAIN ---
HPI - Abdominal Pain General Chief Complaint: Abdominal Pain <Ramón Payan MD - Last Filed: 11/29/23 06:21> Stated Complaint: R side abd pain <Ramón Payan MD - Last Filed: 11/29/23 06:21> Time Seen by Provider: 11/29/23 06:11 <Ramón Payan MD - Last Filed: 11/29/23 06:21> Source: patient <Ramón Payan MD - Last Filed: 11/29/23 06:21> Mode of arrival: ambulatory <Ramón Payan MD - Last Filed: 11/29/23 06:21> Limitations: no limitations <Ramón Payan MD - Last Filed: 11/29/23 06:21> History of Present Illness HPI narrative: 57-year-old female with a history of hypertension, diabetes mellitus, fibromyalgia, DOUG, Status post hysterectomy presents to the ER with a 1 day history of -- right lower quadrant abdominal pain. The pain is persistent. She has nausea without any vomiting. No diarrhea. No fever or chills. No exacerbating or relieving factors. <Ramón Payan MD - Last Filed: 11/29/23 06:21> MD elicited complaint: abdominal pain <Ramón Payan MD - Last Filed: 11/29/23 06:21> Onset (ago): day(s) ( 1 day) <Ramón Payan MD - Last Filed: 11/29/23 06:21> Pain Consistency: constant <Ramón Payan MD - Last Filed: 11/29/23 06:21> Location: RLQ <Ramón Payan MD - Last Filed: 11/29/23 06:21> Severity: moderate <Ramón Payan MD - Last Filed: 11/29/23 06:21> Quality: aching <Ramón Payan MD - Last Filed: 11/29/23 06:21> Radiation: none <Ramón Payan MD - Last Filed: 11/29/23 06:21> Migration to: no migration <Ramón Payan MD - Last Filed: 11/29/23 06:21> Exacerbating factors: nothing <Ramón Payan MD - Last Filed: 11/29/23 06:21> Relieving factors: nothing <Ramón Payan MD - Last Filed: 11/29/23 06:21> Associated symptoms: nausea <Ramón Payan MD - Last Filed: 11/29/23 06:21> Related Data Patient : No <Ramón Payan MD - Last Filed: 11/29/23 06:21> Home Medications: Home Medications Medication Instructions Recorded Confirmed amlodipine 10 mg tablet 10 mg PO DAILY 05/31/21 11/29/23 glipizide 5 mg tablet 5 mg PO DAILY 05/31/21 11/29/23 meloxicam 7.5 mg tablet 7.5 mg PO DAILY 11/29/23 11/29/23 <Ramón Payan MD - Last Filed: 11/29/23 06:21> Allergies/Adverse Reactions: Allergies Allergy/AdvReac Type Severity Reaction Status Date / Time lisinopril Allergy Mild Cough Verified 05/31/21 18:43 <Ramón Payan MD - Last Filed: 11/29/23 06:21> Review of Systems Review of Systems: All systems reviewed & are unremarkable except as noted in HPI and below <Ramón Payan MD - Last Filed: 11/29/23 06:21> Constitutional: Constitutional: Reports as per HPI and Reports no additional constitutional complaints <Ramón Payan MD - Last Filed: 11/29/23 06:21> Eyes: Eyes: Reports as per HPI and Reports no additional eye complaints <Ramón Payan MD - Last Filed: 11/29/23 06:21> ENT: Reports system reviewed and no additional complaints, except as documented and Reports as per HPI <Ramón Payan MD - Last Filed: 11/29/23 06:21> Cardiovascular: Cardiovascular: Reports as per HPI and Reports no additional cardiovascular complaints <Ramón Payan MD - Last Filed: 11/29/23 06:21> Respiratory: Respiratory: Reports as per HPI and Reports no additional respiratory complaints <Ramón Payan MD - Last Filed: 11/29/23 06:21> Gastrointestinal: Gastrointestinal: Reports as per HPI, Reports no additional gastrointestinal complaints, Reports abdominal pain and Reports nausea <Ramón Payan MD - Last Filed: 11/29/23 06:21> Genitourinary: Genitourinary: Reports no additional female genitourinary complaints and Reports as per HPI <Ramón Payan MD - Last Filed: 11/29/23 06:21> Musculoskeletal: Musculoskeletal: Reports no additional musculoskeleta
--- NOTE | 2023-11-29 06:14 | PC.NURSE ---
patient notified to not drink anymore water. made aware that a urine sample is needed. does not need to void at this time. ER provider at the bedside
--- NOTE | 2023-11-29 06:19 | PC.NURSE ---
patient ambulated to the bathroom to give urine sample
--- NOTE | 2023-11-29 06:25 | PC.NURSE ---
urine taken to lab
--- NOTE | 2023-11-29 06:27 | PC.NURSE ---
lab notified of new orders
--- NOTE | 2023-11-29 06:41 | PC.NURSE ---
lab at the bedside
[2023-11-29 07:00] LABS: Basophils Absolute Auto 0.05 K/mm3 (0.00-0.10); Basophils Percent Auto 0.6 % (0.0-1.0); Eosinophils Percent Auto 1.2 % (1.0-6.0); Hematocrit 42.3 % (35.0-49.0); Hemoglobin 14.1 g/dL (12.0-15.0); Immature Granulocyte Absolute 0.02 K/mm3 (0.00-0.00); Immature Granulocyte Percent A 0.2 % (0.0-0.0); Lymphocytes Absolute Auto 1.07 K/mm3 (1.10-4.50); Lymphocytes Percent Auto 12.9 % (18.0-42.0); Mean Corpuscular HGB Conc 33.3 g/dL (32-36); Mean Corpuscular Hemoglobin 29.7 pg (27.0-31.0); Mean Corpuscular Volume 89.2 fL (78.0-102.0); Mean Platelet Volume 9.3 fl (9.2-11.8); Monocytes Absolute Auto 0.55 K/mm3 (0.10-0.90); Monocytes Percent Auto 6.6 % (2.0-11.0); Neutrophils Absolute Auto 6.52 K/mm3 (1.70-7.20); Neutrophils Percent Auto 78.5 % (50.0-70.0); Platelet Count Result 245 K/mm3 (150-420); Red Blood Count 4.74 M/mm3 (4.20-5.40); Red Cell Distribution Width 13.5 % (11.6-14.4); White Blood Count 8.3 K/mm3 (4.8-10.8)
[2023-11-29 07:01] LABS: Bilirubin Urine Negative (Negative); Blood Urine Negative (Negative); Color Urine Yellow (Yellow); Glucose Urine UA 3+ (Negative); Ketones Urine Trace (Negative); Leukocyte Esterase Ur Negative LEU/UL (Negative); Nitrate Urine Negative (Negative); Protein Urine 1+ (Negative); Specific Grav Ur 1.025 (1.010-1.020); Urobilinogen Urine 0.2 mg/dL (0.2-1.0)
[2023-11-29 07:07] LABS: Add Urine Microscopic? YES; Appearance Urine Sl Cloudy (Clear); Bacteria Urine 1+ /hpf; Mucus Urine Heavy /lpf; Squamous Epithelial Cell Urine Many /hpf (Few)
[2023-11-29 07:10] VITALS: BP 141/84; PULSE 101; RESP 16; TEMP 36.8; O2SAT 100
[2023-11-29 07:13] LABS: INR 0.9; Partial Thromboplastin Time 24.6 Sec (23.9-30.70); Prothrombin Time 10.3 Seconds (9.50-12.1)
[2023-11-29 07:17] LABS: Alanine Aminotransferase 50 U/L (14-59); Alkaline Phosphatase 81 U/L (46-116); Anion Gap 13 mmol/L (4-12); Aspartate Amino Transferase 22 U/L (15-37); Bilirubin,Total 0.5 mg/dL (0.00-1.00); Blood Urea Nitrogen 18 mg/dL (7-18); Calcium 9.6 mg/dL (8.5-10.1); Carbon Dioxide 24 mmol/L (21-32); Chloride 100 mmol/L (98-108); Estimated CRCL calculation 83 ml/min; Estimated Glomerular Filt Rate > 60; Glucose 202 mg/dL (70-99); Lipase 49 U/L (16-77); Osmolality Calculated 291 mOsm/kg (285-295); Potassium 4.1 mmol/L (3.5-5.1); Sodium 137 mmol/L (136-145); Total Protein 8.3 g/dL (6.4-8.2); Troponin I 5.6 ng/L (0.00-60.4)
[2023-11-29 07:20] LABS: Lactic Acid Reflex 1.5 mmol/L (0.4-2.0)
[2023-11-29] MEDS: SODIUM CHLORIDE 0.9% IV 1,000 ML 999 ML IV CONT (07:47)
[2023-11-29] MEDS: MORPHINE SULFATE (*CRX) 4 MG/ML INJ IV PUSH (07:48)
[2023-11-29] MEDS: PIPERACILLN/TAZ 3.375GM/NS50ML 3.375 GM/50 ML BAG IVPB (07:49)
[2023-11-29 07:55] VITALS: BP 188/93; PULSE 96; RESP 18; TEMP 36.9; O2SAT 95
[2023-11-29 08:25] VITALS: BP 148/70; PULSE 92; RESP 18; TEMP 36.7; O2SAT 100
--- NOTE | 2023-11-29 08:53 | PM.IMHP ---
H&P: HPI History of Present Illness Date/Time: 11/29/23 08:53 Chief Complaint: Acute appendicitis Narrative: Patient is a 57-year-old female transferred from [facility] Emergency Room with a 1 day history of worsening right lower quadrant abdominal pain. No nausea or vomiting. No diarrhea. Normal white blood cell count. CT scan abdomen pelvis showed an acutely inflamed appendix with some mild periappendiceal inflammation I multiple appendicoliths within the lumen of the appendix. No perforation or abscess was seen. She has had a prior history of parathyroidectomy and hysterectomy. She has diabetes ,fibromyalgia, and hypertension. She takes no blood thinners. Review of Systems Review of Systems: The remainder of the review of systems to include constitutional, HEENT, cardiovascular, respiratory, GI, , integumentary, musculoskeletal, endocrine, immunologic, hematologic, psychiatric, and neurologic are all negative except for which is mentioned above in the HPI. [facility] Past Medical History Medical History Diabetes mellitus Fibromyalgia HTN (hypertension) Sleep apnea Surgical History Surgical History H/O parathyroidectomy Family History Family History Mother Family history of lung cancer Social History Social History Smoking status: Former smoker Alcohol intake: never Substance use: never Substance use type: does not use Do You Feel Safe in your Home?: Yes Lack of Transportation: No Lack of Food: Never True Current Housing: I Have Housing Concerned About Future Housing: No Difficulty Paying Gas/Electric Bills: No Difficulty Paying for Meds: No Currently Unemployed: No Education: High School Diploma/GED Difficulty w/ Childcare or Family Care: No Spiritual care concerns: No Meds Home Medications and Allergies Home Medications Medication Instructions Recorded Confirmed Type amlodipine 10 mg tablet 10 mg PO DAILY 05/31/21 11/29/23 History glipizide 5 mg tablet 5 mg PO BID 05/31/21 11/29/23 History hydrocodone 5 mg-acetaminophen 325 1 tablet PO Q4H PRN pain #15 tabs 11/29/23 Rx mg tablet meloxicam 7.5 mg tablet 7.5 mg PO DAILY PRN Pain 11/29/23 11/29/23 History Allergies Allergy/AdvReac Type Severity Reaction Status Date / Time lisinopril Allergy Mild Cough Verified 05/31/21 18:43 Vital Signs Vital Signs - 24 hr 11/29/23 06:04 11/29/23 07:10 11/29/23 08:25 Temperature 36.2 C L 36.8 C 36.7 C Pulse Rate 109 H 101 H 92 Respiratory Rate 18 16 18 Blood Pressure 167/106 H 141/84 H 148/70 H Pulse Oximetry 98 100 100 Oxygen Delivery Room Air Room Air Room Air 11/29/23 07:55 Temperature 36.9 C Pulse Rate 96 Respiratory Rate 18 Blood Pressure 188/93 H Pulse Oximetry 95 Oxygen Delivery Room Air Exam Const: General: comfortable and no acute distress HENMT: Ears: TM's normal bilaterally Face/Nose/Sinus: Normal nares present Mouth: Yes moist mucous membranes Eyes: General: appearance normal, both eyes and all related structures Sclera: sclerae normal Pupils: Equal, round and reactive pupils present Neck: Neck: supple and no JVD Resp: Effort & Inspection: normal respiratory effort Auscultation: clear to auscultation bilaterally Cardio: Rate: regular rate Rhythm: regular rhythm GI: Other: Abdomen is soft and moderately obese. Moderate tenderness to palpation right lower quadrant with some guarding but no peritoneal signs. No ventral hernias or incisional hernias. Skin: General skin exam: normal color and no rashes or lesions noted Neuro: General: gait normal Speech: normal speech Motor exam (neuro): 5/5 motor strength present throughout Sensory Exam: normal sensation Extrem: General: normal to inspec
== END 2023-11-29 08:25 | disposition short-term general hospital (02) ==
PROVIDERS: Internal Medicine Critical Care Medicine; Emergency Provider Emergency Medicine; PCP Family Medicine
DX: K35.80 Unspecified acute appendicitis (principal); I10 Essential (primary) hypertension; E11.9 Type 2 diabetes mellitus without complications; G47.30 Sleep apnea, unspecified; M79.7 Fibromyalgia; Z79.84 Long term (current) use of oral hypoglycemic drugs
CPT/HCPCS: 36415; 74176; 80053; 81001; 83605; 83690; 84484; 85025; 85610; 85730; 96365; 96375; 99285; J2270; J2543; J7030

== ENCOUNTER 2023-11-29 09:55 | Observation (INO) | payer OTHER, SELFPAY ==
[2023-11-29] VITALS (9 sets, daily range): BP systolic 139–171; BP diastolic 63–93; PULSE 94–105; RESP 16–19; TEMP 36.1–36.6; O2SAT 92–100; BMI 43.8
[2023-11-29] MEDS: LACTATED RINGERS 1,000 ML 30 ML IV CONT (09:00)
--- NOTE | 2023-11-29 09:01 | ADMGEN ---
This patient, Katelyn Keene, was admitted to 2 Medical Room 261-01. Patient/family oriented to hospital policies and general routines including ID bracelet, bed and alarms, visiting hours, pain management, procedures, bathroom and other care routines, personal items, smoking policy, room service/diet, and visiting hours. Information on how to activate the Rapid Response Team has been discussed. Patient/Family are encouraged to report perceived risks to care and to ask questions if they do not understand what they are told or what they should do.
--- NOTE | 2023-11-29 09:35 | PC.NURSE ---
patient taken off the unit to PACU.
--- NOTE | 2023-11-29 09:36 | WPDANESEPPF ---
Anes - Initial Pre Proc Eval Procedure: Operation Date: 11/29/23 09:30 Proposed Procedures p Laparoscopic Appendectomy - Soto Pathak MD Date/Time: 11/29/23 09:36 Surgeon: Soto Pathak MD Pre Op Diagnosis: accute appendicitis Patient Data Age: 57 Gender: F Height: 1.63 m Weight: 115.9 kg Last Vital Signs Temp 36.4 C 11/29/23 09:21 Pulse 100 11/29/23 09:21 Resp 16 11/29/23 09:21 BP 161/86 H 11/29/23 09:21 Pulse Ox 97 11/29/23 09:21 Allergies Allergy/AdvReac Type Severity Reaction Status Date / Time lisinopril Allergy Mild Cough Verified 05/31/21 18:43 Home Medications Medication Instructions Recorded Confirmed Type amlodipine 10 mg tablet 10 mg PO DAILY 05/31/21 11/29/23 History glipizide 5 mg tablet 5 mg PO BID 05/31/21 11/29/23 History meloxicam 7.5 mg tablet 7.5 mg PO DAILY PRN Pain 11/29/23 11/29/23 History Patient hx anesthesia problems: none Family hx anesthesia problems: none Results Review: All pre-operative results and documents have been reviewed as part of the pre-operative evaluation. [facility] Past Medical History Medical History Diabetes mellitus Fibromyalgia HTN (hypertension) Sleep apnea Surgical History Surgical History H/O parathyroidectomy Family History Family History Mother Family history of lung cancer Social History Social History Smoking status: Former smoker Alcohol intake: never Substance use: never Substance use type: does not use Do You Feel Safe in your Home?: Yes Lack of Transportation: No Lack of Food: Never True Current Housing: I Have Housing Concerned About Future Housing: No Difficulty Paying Gas/Electric Bills: No Difficulty Paying for Meds: No Currently Unemployed: No Education: High School Diploma/GED Difficulty w/ Childcare or Family Care: No Spiritual care concerns: No Anes - Eval Final PreProcedure Day of Procedure 11/29/23 09:36 Patient weight: morbidly obese Heart: regular rate and rhythm Lungs: clear to auscultation Airway: Mallampati scale class II Neurological: alert and oriented Last oral intake: >/= 8 hours ASA classification: III Emergent: no Anesthetic plan: proceed Anesthesia type and monitoring: general ETT and standard monitoring Results Review: All pre-operative results and documents have been reviewed as part of the pre-operative evaluation. Informed Consent: The patient's anesthetic plan and its attendant risks and benefits were discussed with the patient/family/POA. Questions were solicited and answers provided to the satisfaction of the patient/family/POA.
--- NOTE | 2023-11-29 09:48 | PM.IMHP ---
H&P: HPI History of Present Illness Date/Time: 11/29/23 09:48 Chief Complaint: Acute appendicitis Narrative: Patient is a 57-year-old female who presented to the outside hospital facility as [facility] with a 1 day history of worsening right lower quadrant abdominal pain without nausea vomiting. No diarrhea. No fever. White blood cell count was normal. CT scan abdomen pelvis was performed showing a dilated appendix with some mild periappendiceal inflammation and multiple appendicoliths within the appendical lumen. No perforation was seen. No abscess was seen. Her prior abdominal surgical history includes a tubal ligation and a open hysterectomy. She has also had a parathyroidectomy in the past. She has fibromyalgia, diabetes, and hypertension. Review of Systems Review of Systems: The remainder of the review of systems to include constitutional, HEENT, cardiovascular, respiratory, GI, , integumentary, musculoskeletal, endocrine, immunologic, hematologic, psychiatric, and neurologic are all negative except for which is mentioned above in the HPI. [facility] Past Medical History Medical History Diabetes mellitus Fibromyalgia HTN (hypertension) Sleep apnea Surgical History Surgical History H/O parathyroidectomy Family History Family History Mother Family history of lung cancer Social History Social History Smoking status: Former smoker Alcohol intake: never Substance use: never Substance use type: does not use Do You Feel Safe in your Home?: Yes Lack of Transportation: No Lack of Food: Never True Current Housing: I Have Housing Concerned About Future Housing: No Difficulty Paying Gas/Electric Bills: No Difficulty Paying for Meds: No Currently Unemployed: No Education: High School Diploma/GED Difficulty w/ Childcare or Family Care: No Spiritual care concerns: No Meds Home Medications and Allergies Home Medications Medication Instructions Recorded Confirmed Type amlodipine 10 mg tablet 10 mg PO DAILY 05/31/21 11/29/23 History glipizide 5 mg tablet 5 mg PO BID 05/31/21 11/29/23 History meloxicam 7.5 mg tablet 7.5 mg PO DAILY PRN Pain 11/29/23 11/29/23 History Allergies Allergy/AdvReac Type Severity Reaction Status Date / Time lisinopril Allergy Mild Cough Verified 05/31/21 18:43 Vital Signs Vital Signs - 24 hr 11/29/23 09:21 Temperature 36.4 C Pulse Rate 100 Respiratory Rate 16 Blood Pressure 161/86 H Pulse Oximetry 97 Exam Const: General: comfortable and no acute distress HENMT: Ears: TM's normal bilaterally Face/Nose/Sinus: Normal nares present Mouth: Yes moist mucous membranes Eyes: General: appearance normal, both eyes and all related structures Sclera: sclerae normal Pupils: Equal, round and reactive pupils present EOM: EOMs intact bilaterally Neck: Neck: supple and no JVD Resp: Effort & Inspection: normal respiratory effort Auscultation: clear to auscultation bilaterally Cardio: Rate: regular rate Rhythm: regular rhythm GI: Other: Soft nondistended. Moderately obese. Moderate tenderness to palpation right lower quadrant the abdomen with some guarding but no generalized peritoneal signs. No masses. No ventral hernias or incisional hernias. Skin: General skin exam: normal color and no rashes or lesions noted Neuro: General: gait normal Speech: normal speech Extrem: General: normal to inspection Psych: Mental Status: mental status grossly normal Affect: normal affect H&P: Results Imaging CT scan - abdomen: Radiologist's impression: EXAMINATION: CT abdomen pelvis wo con DATE: 11/29/2023 07:18 INDICATION: Right-sided flank pain and nausea for 2 days TECHNIQUE: Computed tomography
--- NOTE | 2023-11-29 09:53 | WPDHPUPDATE1 ---
History and Physical Update Update Date/Time: 11/29/23 09:53 History and Physical has been reviewed, including an updated exam of the patient. There are NO changes in the patient's condition. Risks, benefits, and alternatives have been discussed and questions answered. Patient agrees to proceed with procedure.
[2023-11-29] MEDS: LIDO 1%/EPINEPHRINE 1:100,000 20 ML VIAL 30 ML INFILTRATE (10:17)
[2023-11-29] MEDS: BUPivacaine HCL 0.5% PF 30 ML VIAL INFILTRATE (10:18)
[2023-11-29] MEDS: KETOROLAC 30 MG/ML VIAL (*BKC) IV PUSH (10:28)
--- NOTE | 2023-11-29 10:48 | W.PM.PROC2 ---
Procedure Note - Detailed Date of Procedure 11/29/23 Pre-op Diagnosis accute appendicitis Post-op Diagnosis Same Procedure Performed Laparoscopic appendectomy. Surgeon Soto Pathak MD Sql Database Administrator SANJIV Haley Anesthesia General Indications Patient is a 57-year-old female presented to an outside facility with a 1 day history of worsening right lower quadrant abdominal pain. White blood cell count was normal. CT scan abdomen pelvis showed a dilated acutely inflamed appendix without perforation. Multiple appendicoliths were seen within the appendix. She presents now for emergent laparoscopic appendectomy after transfer from the outside facility. Findings A dilated acutely inflamed appendix. No necrosis or perforation was seen. Multiple appendicoliths were palpated within the lumen of the appendix after removal of the appendix. Description of Procedure After informed consent was obtained patient brought to the operating where she was placed supine position and general endotracheal anesthesia was administered. A Garcia catheter placed decompress the bladder then the abdomen was then prepped draped usual sterile fashion. Time-out was then performed correctly identifying the patient and the procedure to be performed. She was already given perioperative IV antibiotics at the outside facility. In left upper quadrant utilizing a 5mm Optiview port. Once inside the abdomen insufflated to adequate pneumoperitoneum of 15mmHg of CO2. The looking the right lower quadrant the abdomen the appendix was easily seen in the right lower quadrant and it was diffusely dilated with some hyperemia but no evidence of perforation or gangrene. The mesoappendix was mildly inflamed. No abscess was seen. Under direct visualization I then placed a 12mm periumbilical trocar port as well as 2 more 5mm trocar ports in the suprapubic and right lower quadrants of the abdomen. Working through these ports I then was able to use laparoscopic instruments to elevate the appendix and then made a defect through the mesoappendix utilizing Shilpa dissector. The mesoappendix was then divided utilizing a vascular load to the 45mm Endo-KIKE stapler. Hemostasis and staple line was good. I then utilized electrocautery with the hook to clean off the fatty tissue around the base of the appendix select SCDs junction of the cecum and the base of the appendix easily. I then used a blue load to the Endo-KIKE stapler to divide the appendix flush with the cecum. The appendix was then placed into an Endo-Catch bag and brought out through the periumbilical trocar port site. It was passed off table sent to pathology for examination. I did palpate appendicoliths within the appendix. I then aspirated a small amount of blood from the right lower quadrant the abdomen. Both staple lines appeared hemostatic. I then removed all the trocar ports under visualization all port sites appeared hemostatic. I then allowed the abdomen decompressed. I irrigated all the port sites sterile saline solution hemostasis was good. I then closed the 12mm periumbilical trocar port fascial defect utilizing 0 Vicryl suture placed through the fascia to close the fascial defect. Incisions were then irrigated sterile saline solution hemostasis was good. The incisions were then closed utilizing a running subcuticular 4 Monocryl suture in all the incisions. Incisions were then cleaned the skin glue was applied. The patient tolerated the procedure well no complications. All sponges, needles, and instrument counts were correct at the end procedure. EBL was _10__cc. The patient was awakened and taken to recovery in stable and satisfactory condition. Implants None Estimated Blood Loss 10 Drains No Packing No Pathology Yes (Appendix and contents to pathology) Complications No immediate complications Condition Stable Disposition PACU [facility] Billing Surgery - Charge Forward: Surgery Billing
[2023-11-29] MEDS: fentaNYL CITRATE INJ (*CRX) 100 MCG/2 ML VIAL 25 MCG IV PUSH ×4 (11:15→11:30)
--- NOTE | 2023-11-29 12:00 | PC.NURSE ---
pt returned to room from surgery. Report received from JACKIE Leblanc
[2023-11-29 12:38] LABS: Glucose Point of Care 253 mg/dl (65-105)
[2023-11-29] MEDS: LACTATED RINGERS 1,000 ML 75 ML IV CONT (12:47)
[2023-11-29] MEDS: amLODIPine BESYLATE 5 MG TABLET 10 MG PO (13:06)
[2023-11-29] MEDS: INSULIN ASPART (*BKC) 100 UNITS/ML SUB-Q (13:07)
[2023-11-29] MEDS: ACETAMINOPHEN 500 MG TABLET 1000 MG PO (13:10)
--- NOTE | 2023-12-10 12:43 | PM.DS ---
DS: Admitting Diagnosis Discharge Date 11/29/23 Admitting Diagnosis Acute appendicitis DS: Discharge Diagnosis Discharge Diagnosis (1) Acute appendicitis: Code(s): K35.80 - Unspecified acute appendicitis Status: Acute DS: Summary Hospital Course Reason for hospitalization: acute appendicitis Hospital Course: Patient presents to the [facility] with complaints of worsening right lower quadrant abdominal pain which been going on for a day or 2. No nausea or vomiting. Normal white blood cell count she was afebrile. She 7 was transferred to [facility] by ambulance for further definitive surgical care after a CT scan of the abdomen pelvis at the outside hospital showed acute appendicitis without perforation or periappendiceal abscess. She arrived here at [facility] by ambulance and was taken to the operating room where she underwent an uncomplicated laparoscopic appendectomy. Postoperatively she recovered in the recovery unit where she did well was transferred to the surgical floor for routine postoperative care. One surgical floor she was afebrile and her pain was well controlled with oral pain medications. She tolerated clear liquids and advanced to regular diet. She was able to get up and ambulate and walk to the bathroom about difficulty. Her incisions eating to be healing well without redness or drainage. Later in the evening of her operative day she is doing very well and tolerating a regular diet. Her pain was well controlled only on oral pain medications. She was then discharged home on the day of surgery in improved condition. Status at Discharge Functional status at discharge: independent ambulation Overall status at discharge: patient is back to baseline Time Spent with Patient Time attestation: Total time spent providing and/or coordinating discharge services: Time spent: Less than 30 minutes Exam GI: Other: Abdomen is soft and nondistended. Prior right lower quadrant abdominal pain resolved. Port site incisions are healing well no redness or drainage. DS: Data Data Completed and Pending Completed studies during hospitalization: Pending at discharge 11/29/23 10:23 Surgical [PTH] Routine Discharge Plan Discharge Attending physician on discharge: Soto Pathak Consulting providers: [place] Discharging Clinician: Soto Pathak Patient Disposition: Home, Self-Care Activity: may shower Diet: diabetic Wound Care Instructions: other - see discharge instructions Discharge Instructions: May discharge home when stable, walking in halls, urinating spontaneously, pain is controlled only with oral pain meds, and tolerating solid food. Follow up with Dr. Pathak in the office in 2 weeks. Patient to call [phone] for an appointment. May shower in 24hours but do not soak incisions under water for 2 weeks. No lifting more than 10 to 15 lb for 2 weeks. May return to work in 3 days as long as she stays within lifting restrictions. May advance diet as tolerated. No driving for at least 3 days or until no longer taking any narcotic pain medication. Resume all home medications. Prescription for narcotic pain medicines will be sent to the patient's pharmacy if needed. May use Tylenol and/or ibuprofen in addition to or in place of narcotic pain medications for postoperative pain. Patient Instructions: Antibiotic Form Stand Alone Forms: General Discharge Information Follow-up/Referrals: Soto Pathak MD [Physician] - Discharge Medications: New hydrocodone-acetaminophen 5-325 mg tablet 1 tablet PO Q4H PRN (Reason: pain) Qty: 15 0RF Continued amlodipine 10 mg tablet 10 mg PO DAILY glipizide 5 mg tablet 5 mg PO BID meloxicam 7.5 mg tablet 7.5 mg PO DAILY PRN (Reason: Pain) Date of admission: 11/29/23 09:55 Primary Care Provider: Markell,Reed Mercer Admitting Provide
== END 2023-11-29 15:50 | disposition home or self-care (01) ==
PROVIDERS: Admitting Provider Surgery; PCP Family Medicine; Visit Provider Surgery
PROC: 0DTJ4ZZ Resection of Appendix, Percutaneous Endoscopic Approach (ICD-10-PCS; CPT 44970; principal; 2023-11-29 09:30)
DX: K35.80 Unspecified acute appendicitis (principal); E11.9 Type 2 diabetes mellitus without complications; I10 Essential (primary) hypertension; M79.7 Fibromyalgia; G47.30 Sleep apnea, unspecified; Z87.891 Personal history of nicotine dependence; Z79.84 Long term (current) use of oral hypoglycemic drugs; E66.01 Morbid (severe) obesity due to excess calories; Z68.41 Body mass index [BMI] 40.0-44.9, adult
CPT/HCPCS: 44970; 82948; 88304; 99199; A9270; J0330; J1100; J1815; J1885; J2250; J2405; J2704; J3010; J7120